=== PATIENT | male | born 1975 | race Caucasian/White ===

== ENCOUNTER 2023-06-23 08:46 | Emergency (ER) | payer OTHER ==
[~2023-06-23] VITALS: Ht 172.7 cm; Wt 93.4 kg
[2023-06-23 08:54] VITALS: BP 151/105; PULSE 95; RESP 18; TEMP 98.3; O2SAT 97
[2023-06-23] MEDS ORDERED: IBUP-2213 PO (12:58)
[2023-06-23] MEDS ORDERED: CEPH-588 PO (12:58)
[2023-06-23] MEDS: IBUPROFEN 600 MG TAB PO ONE (13:10)
[2023-06-23 13:15] VITALS: BP 151/105; PULSE 95; RESP 18; TEMP 98.3; O2SAT 97
== END 2023-06-23 13:15 | disposition home or self-care (01) ==
LOC: MED 08:46
DX: L60.0 Ingrowing nail (principal); Z79.899 Other long term (current) drug therapy
CPT/HCPCS: 11730; 99284